=== PATIENT | female | born 1935 | race Caucasian/White ===

== ENCOUNTER 2022-09-06 16:35 | Emergency (ER) | payer MEDICARE, BC ==
[2022-09-06] MEDS ORDERED: Sodium Chloride 0.9% 10 ML Syringe FLUSH PRN (17:10)
[2022-09-06] MEDS ORDERED: diphenhydrAMINE 50 MG/ML SDV IVPUSH ONE (17:13)
[2022-09-06] MEDS ORDERED: Metoclopramide 10 MG/2 ML SDV IVPUSH ONE (17:13)
[2022-09-06] MEDS ORDERED: Ketorolac 15 MG/ML SDV IVPUSH ONE (17:14)
[2022-09-06] MEDS ORDERED: Sodium Chloride 0.9% 1,000 ML IV SCH (17:15)
[2022-09-06 17:47] LABS: BASOPHILS ABSOLUTE AUTO 0.03 K/mm3 (0.01-0.08); BASOPHILS PERCENT AUTO 0.6 % (0.1-1.2); EOSINOPHILS ABSOLUTE AUTO 0.03 K/mm3 (0.04-0.36); EOSINOPHILS PERCENT AUTO 0.6 (0.7-5.8); HEMATOCRIT 38.1 % (34.1-44.9); HEMOGLOBIN 12.4 gm/dl (11.2-15.7); LYMPHOCYTES ABSOLUTE AUTO 1.38 K/mm3 (1.18-3.74); LYMPHOCYTES PERCENT AUTO 25.4 % (19.3-51.7); MEAN CORPUSCULAR HEMOGLOBIN 28.1 pg (25.6-32.2); MEAN CORPUSCULAR HGB CONC 32.5 g/dl (32.2-35.5); MEAN CORPUSCULAR VOLUME 86.4 fl (79.4-94.8); MEAN PLATELET VOLUME 8.8 fl (9.4-12.3); MONOCYTES ABSOLUTE AUTO 0.31 K/mm3 (0.24-0.36); MONOCYTES PERCENT AUTO 5.7 % (4.7-12.5); NEUTROPHILS ABSOLUTE AUTO 3.68 K/mm3 (1.56-6.13); NEUTROPHILS PERCENT AUTO 67.7 % (34.0-71.1); PLATELET COUNT,PLT 393 K/mm3 (182-369); RED BLOOD CELL COUNT 4.41 M/mm3 (3.98-5.22); WHITE BLOOD CELL COUNT,WBC 5.43 K/mm3 (3.98-10.04)
[2022-09-06 18:11] LABS: ALANINE AMINOTRANSFERASE,ALT 22 U/L (14-59); ALBUMIN 3.9 g/dl (3.4-5.0); ALKALINE PHOSPHATASE 23 U/L (46-116); ANION GAP 17.2 (5-15); ASPARTATE AMNIOTRANSFERASE,AST 18 U/L (15-37); BILIRUBIN TOTAL 0.3 mg/dL (0.2-1.0); BLOOD UREA NITROGEN,BUN 20 mg/dL (7-18); CARBON DIOXIDE,CO2 25 mEq/L (21-32); CHLORIDE,CL 103 mEq/L (98-107); CREATININE 0.8 mg/dL (0.55-1.02); EST CRCL DRUG DOSING (CG) 34.24 mL/min; ESTIMATED GFR 70 mL/min (>60); GLUCOSE RANDOM 144 mg/dL (70-99); LIPASE 464 U/L (73-393); POTASSIUM,K 3.2 mEq/L (3.5-5.1); PROTEIN TOTAL,TP 7.7 g/dl (6.4-8.2); SODIUM,NA 142 mEq/L (136-145); TROPONIN I HIGH SENSITIVITY 15 pg/mL (<=51); TSH 2.004 uIU/mL (0.358-3.74)
[2022-09-06 18:36] LABS: C-REACTIVE PROTEIN < 0.2 mg/dL (<1.0)
[2022-09-06 19:23] LABS: CORONAVIRUS COVID-19 NAA NEGATIVE (NEGATIVE); INFLUENZA A NAA NEGATIVE (NEGATIVE); RESPIRATORY SYNCYTIAL VIR NAA NEGATIVE (NEGATIVE)
[2022-09-06] MEDS ORDERED: Iopamidol 612 MG/ML 100 ML Bottle IVPUSH ONE (19:27)
[2022-09-06 20:06] LABS: APPEARANCE,URINE CLEAR (Clear); BILIRUBIN,URINE NEGATIVE (Negative); COLOR,URINE YELLOW (Yellow); GLUCOSE,URINE NEGATIVE (Negative); KETONES,URINE NEGATIVE (Negative); LEUKOCYTE ESTERASE,URINE TRACE (Negative); NITRITE,URINE NEGATIVE (Negative); OCCULT BLOOD,URINE NEGATIVE (Negative); PROTEIN,URINE NEGATIVE (Negative); UROBILINOGEN,URINE 0.2 (0.2-1.0)
[2022-09-06 20:16] LABS: BACTERIA,URINE FEW /hpf (FEW); HYALINE CASTS,URINE 0-5 /lpf (0-5); MUCUS,URINE RARE /hpf (FEW); WBC,URINE 20-30 /hpf (0-5)
[2022-09-06] MEDS ORDERED: cefTRIAXone 1 GM in Sodium Chloride 0.9% 100 ML IV ONE (20:45)
== END 2022-09-06 21:55 | disposition home or self-care (01) ==
LOC: JD.ED 16:35
DX: K52.9 Noninfective gastroenteritis and colitis, unspecified (principal); N39.0 Urinary tract infection, site not specified; Z88.8 Allergy status to other drugs, medicaments and biological substances; Z20.822 Contact with and (suspected) exposure to COVID-19
CPT/HCPCS: 0241U; 36415; 70450; 71260; 74177; 80053; 81001; 83605; 83690; 83735; 84443; 84484; 85025; 86140; 86738; 87040; 87086; 93005; 96361; 96365; 96375; 99284; J0696; J1200; J1885; J2765; J3490; J7030; Q9967; 93010